=== PATIENT | male | born 1990 | race Caucasian/White ===

== ENCOUNTER 2018-06-27 09:02 | Emergency (ER) | payer OTHER ==
[~2018-06-27] VITALS: Ht 182.9 cm; Wt 210.0 kg
[~2018-06-27 09:02] MED LIST: ACETAMINOPHEN-1 EAC1 PO; AFRIN15 ML NS; ALBUTEROL2.5 MG/31 INH; AMLODIPINE; AUGMENTIN 875875 MG PO; BENADRYL25 MG PO; BIAXIN500 MG PO; BUSPAR; BUSPIRONE HCL10 MG PO; BUTALB-APAP-CA1 EACH PO; CELEXA20 MG PO; CEPHALEXIN 500500 M3 PO; CIPRO HC OTIC S10 ML OTIC; CIPROFLOXIN HC2.5 M1 OTIC; DOXYCYCLINE 10100 MG PO; FLAGYL500 MG PO; HYDROCODON-ACE1 EAC7 PO; HYDROCODONE-AP1 EAC6 PO; HYDROCODONE-APA1 TA1 PO; IBUPROFEN 800800 M1 PO; LEXAPRO; LEXAPRO 10 MG T10 M1; LEXAPRO20 MG PO; LISINOPRIL; LORATIDINE 10 M10 M1 PO; MEDROLDOSEPACK PO; NAPROSYN500 MG PO; NORCO 5-325 TA1 EAC1 PO; NORFLEX100 MG PO; NORVASC 5 MG TAB5 MG PO; OMEPRAZOLE; OMEPRAZOLE40 MG PO; ONDANSETRON HCL4 M2 PO; ONE A DAY; PHENERGAN 25 MG25 M1 PO; PHENERGAN 25 MG25 MG PO; PROAIR HFA8.5 GM INH; PROMETHAZINE D480 ML PO; ROBAXIN500 MG PO; TRAMADOL 50 MG50 MG PO; TRAZODONE; TRAZODONE HCL100 MG PO; VENTOLIN HFA 1818 GM INH; ZESTORETIC 20-1 EAC2 PO; ZOFRAN ODT4 MG PO; ZYRTEC; ZYRTEC10 MG PO
[2018-06-27] MEDS ORDERED: MOBIC15 MG PO (09:12)
[2018-06-27] MEDS ORDERED: GABAPENTIN 100100 MG PO (09:12)
[2018-06-27] MEDS ORDERED: TIZANIDINE HCL2 M1 PO (09:12)
[2018-06-27] MEDS ORDERED: ONE A DAY PREN1 EACH PO (09:13)
[2018-06-27] MEDS ORDERED: TRAMADOL 50 MG50 MG PO (09:13)
[2018-06-27] MEDS ORDERED: TRAZODONE HCL50 MG PO (09:13)
[2018-06-27] MEDS ORDERED: HYDROCODON-ACE1 EAC7 PO (10:20)
[2018-06-27 10:29] VITALS: BP 131/83
== END 2018-06-27 10:30 | disposition home or self-care (01) ==
LOC: M.ERS 09:02
DX: S70.02XA Contusion of left hip, initial encounter (principal); F41.9 Anxiety disorder, unspecified; K58.9 Irritable bowel syndrome, unspecified; I10 Essential (primary) hypertension; J45.909 Unspecified asthma, uncomplicated; F31.9 Bipolar disorder, unspecified; E66.01 Morbid (severe) obesity due to excess calories; F17.210 Nicotine dependence, cigarettes, uncomplicated; Z90.49 Acquired absence of other specified parts of digestive tract; Z68.44 Body mass index [BMI] 60.0-69.9, adult; Z88.8 Allergy status to other drugs, medicaments and biological substances; Z91.018 Allergy to other foods; W01.0XXA Fall on same level from slipping, tripping and stumbling without subsequent striking against object, initial encounter; Y93.89 Activity, other specified; Y92.89 Other specified places as the place of occurrence of the external cause; Y99.8 Other external cause status

== ENCOUNTER 2018-07-15 08:28 | Inpatient (IN) | payer OTHER ==
[~2018-07-15] VITALS: Ht 185.4 cm; Wt 210.0 kg
--- NOTE | ~2018-07-15 | OP ---
[address] [address] OPERATIVE REPORT Name: QUIQUE VILLALBA Room: [address] IN M.R.#: [id number] Admission: 07/15/18 Attend Phys: Quique Kang MD Discharge: Date of : 89 Report #: [id number] THIS REPORT FOR: //name// CC: Quique Dean DATE OF SERVICE: 07/16/2018 PREOPERATIVE DIAGNOSIS: Right medial thigh abscess. POSTOPERATIVE DIAGNOSIS: Right medial thigh abscess. PROCEDURE PERFORMED: Incision and drainage of right thigh abscess. PRIMARY SURGEON: Tristin Miller DO COSURGEON : Omar Jacob DO, PGY-3 COAT AGENT: YAMILETH Sandhu. INDICATIONS: The patient is a 27-year-old male that presented to the Emergency Room and was admitted to the floor with right medial thigh cellulitis and abscess. General surgery was consulted after purulent drainage was noted from his right medial thigh. On inspection, there was purulent drainage; however, a large likely abscess cavity was present that seemed too large to adequately drain to the small aperture. He was informed of the risks and benefits of incision and drainage and decided to proceed with surgery. DESCRIPTION OF PROCEDURE: After informed consent was obtained, the patient was brought to the operating room and placed in the supine position. General anesthesia was administered with an LMA. He was then repositioned into lithotomy. He was prepped and draped in the usual sterile fashion with Betadine. A surgical pause was held to confirm proper patient and procedure. We begun by placing a Thelma into the draining opening to explore the limits of the wound. There was an underlying abscess cavity with purulent fluid that began successfully draining from this hole. An 18-gauge was then inserted into the more anterior indurated portion of the wound and purulent drainage was confirmed there as well. An 11 blade was used to connect this puncture site to the previous draining site. Blunt dissection was used to open the entire abscess cavity to hold its limits. The more posterior aspect of the incision was also extended to allow complete unroofing of the abscess cavity. The wound was then thoroughly irrigated and packed irrigation included hydrogen peroxide as well as normal saline. The wound was packed using a 2-inch Dayan roll and it was dressed with 4 x 4s, ABDs and tape. The patient was repositioned supine. He was emerged from anesthesia and transferred to the PACU and subsequently to the [place] [address] OPERATIVE REPORT Name: QUIQUE VILLALBA Room: [address]#: [id number] Admission: 07/15/18 Attend Phys: Quique Kang MD Discharge: Date of : 89 Report #: [id number] ESTIMATED BLOOD LOSS: 10 mL. SPECIMEN: Cultures of the wound. COMPLICATIONS: No complications. By: [id number] jaiden Toney
[~2018-07-15 08:28] MED LIST changes: +GABAPENTIN 100100 MG PO; +MOBIC15 MG PO; +ONE A DAY PREN1 EACH PO; +TIZANIDINE HCL2 M1 PO; +TRAZODONE HCL50 MG PO
[2018-07-15 08:39] VITALS: BP 152/71
[2018-07-15 09:12] LABS: ABSOLUTE BASOPHILS 0.1 thou/uL (0.0-0.2); ABSOLUTE EOSINOPHILS 0.2 thou/uL (0.0-0.7); ABSOLUTE LYMPHOCYTES 1.2 thou/uL (0.8-5.3); ABSOLUTE MONOCYTES 0.8 thou/uL (0.0-1.2); BASOPHILS 0.6 %; EOSINOPHILS 2.2 %; HEMATOCRIT 41.6 % (42.0-52.0); HEMOGLOBIN 14.2 gm/dL (14.0-18.0); LYMPHOCYTES 11.9 %; MCH 28.9 pg (26.0-34.0); MCHC 34.2 g/dL (28.0-37.0); MCV 84.5 fL (80.0-100.0); MONOCYTES 8.1 %; MPV 7.8 fl. (7.2-11.1); NUCLEATED RBCS 0 /100WBC; PLATELET COUNT* 260 thou/uL (150-400); POLYS 77.2 %; RBC 4.92 mil/uL (4.50-6.00); RDW-CV 13.3 % (10.5-14.5); WBC 10.4 thou/uL (4.0-11.0)
[2018-07-15 09:21] LABS: CALCIUM 8.7 mg/dL (8.5-10.1); CREATININE 0.9 mg/dL (0.6-1.3); POTASSIUM 3.7 mmol/L (3.5-5.1)
[2018-07-15 09:26] LABS: ALBUMIN 2.9 g/dL (3.4-5.0); TOTAL BILIRUBIN 0.4 mg/dL (<0.1-1.0); TOTAL PROTEIN 6.8 g/dL (6.4-8.2)
[2018-07-15 10:51] VITALS: BP 153/67
[2018-07-15 12:30] VITALS: BP 131/80
[2018-07-15 14:46] LABS: URINE BILIRUBIN NEGATIVE (Negative); URINE BLOOD NEGATIVE (Negative); URINE CLARITY CLEAR; URINE COLOR YELLOW; URINE GLUCOSE-RANDOM NEGATIVE (Negative); URINE KETONES NEGATIVE (Negative); URINE LEUKOCYTES-REFLEX NEGATIVE (Negative); URINE NITRITE-REFLEX NEGATIVE (Negative); URINE PROTEIN NEGATIVE (Negative); URINE SPECIFIC GRAVITY >= 1.030 (1.005-1.030); URINE UROBILINOGEN 0.2 E.U./dl (0.2-1.0)
[2018-07-15 16:00] VITALS: BP 136/66
[2018-07-15 23:53] VITALS: BP 132/67
[2018-07-16 04:40] LABS: HEMATOCRIT 38.5 % (42.0-52.0); MCH 28.7 pg (26.0-34.0); MCHC 33.9 g/dL (28.0-37.0); MCV 84.9 fL (80.0-100.0); RBC 4.54 mil/uL (4.50-6.00); RDW-CV 13.3 % (10.5-14.5); WBC 11.4 thou/uL (4.0-11.0)
[2018-07-16 04:41] LABS: CALCIUM 8.2 mg/dL (8.5-10.1); CREATININE 0.8 mg/dL (0.6-1.3); MAGNESIUM 1.8 mg/dL (1.8-2.4); POTASSIUM 4.2 mmol/L (3.5-5.1)
[2018-07-16 08:55] VITALS: BP 102/78
[2018-07-16 16:23] VITALS: BP 154/83
[2018-07-16 19:11] LABS: GLYCOHEMOGLOBIN (HGB A1C) 6.1 % (4.8-5.6)
[2018-07-16 20:00] VITALS: BP 159/79
[2018-07-17 04:14] LABS: HEMATOCRIT 41.5 % (42.0-52.0); HEMOGLOBIN 14.1 gm/dL (14.0-18.0); MCH 28.8 pg (26.0-34.0); MCHC 34.1 g/dL (28.0-37.0); MCV 84.4 fL (80.0-100.0); MPV 8.1 fl. (7.2-11.1); RBC 4.91 mil/uL (4.50-6.00); RDW-CV 12.9 % (10.5-14.5); WBC 11.8 thou/uL (4.0-11.0)
[2018-07-17 04:44] LABS: CALCIUM 8.8 mg/dL (8.5-10.1); CREATININE 0.8 mg/dL (0.6-1.3); MAGNESIUM 2.1 mg/dL (1.8-2.4)
[2018-07-17 04:50] LABS: POTASSIUM 5.5 mmol/L (3.5-5.1)
[2018-07-17 08:10] VITALS: BP 127/71
[2018-07-17 16:34] VITALS: BP 141/95
[2018-07-17 20:00] VITALS: BP 120/50
[2018-07-18 07:45] VITALS: BP 146/62
[2018-07-18 10:03] VITALS: BP 146/62
[2018-07-18] MEDS ORDERED: AUGMENTIN 875-1 EACH PO (10:42)
[2018-07-18] MEDS ORDERED: IBUPROFEN 800800 M1 PO (10:43)
[2018-07-18] MEDS ORDERED: NORCO 5-325 TA1 EACH PO (11:02)
== END 2018-07-18 11:25 | disposition home or self-care (01) | DRG 872 ==
LOC: M.ERS 08:28 → M.3W 09:38 → M.TBA-ER 09:38 → M.3W 10:55
PROVIDERS: Emergency Medicine Emergency Medical Services; Surgery; ADMIT Internal Medicine
PROC: 0Y9C0ZZ Drainage of Right Upper Leg, Open Approach (ICD-10-PCS; principal; 2018-07-16)
DX: A41.9 Sepsis, unspecified organism (principal); L02.415 Cutaneous abscess of right lower limb; L03.115 Cellulitis of right lower limb; Z68.44 Body mass index [BMI] 60.0-69.9, adult; F41.9 Anxiety disorder, unspecified; G47.00 Insomnia, unspecified; I10 Essential (primary) hypertension; J45.909 Unspecified asthma, uncomplicated; F31.9 Bipolar disorder, unspecified; E66.01 Morbid (severe) obesity due to excess calories; E11.65 Type 2 diabetes mellitus with hyperglycemia; G89.29 Other chronic pain; F17.220 Nicotine dependence, chewing tobacco, uncomplicated; G47.33 Obstructive sleep apnea (adult) (pediatric); F41.1 Generalized anxiety disorder; K58.9 Irritable bowel syndrome, unspecified; E87.5 Hyperkalemia; R73.03 Prediabetes; Z88.8 Allergy status to other drugs, medicaments and biological substances; Z90.49 Acquired absence of other specified parts of digestive tract; Z79.899 Other long term (current) drug therapy

== ENCOUNTER 2020-12-15 17:48 | Emergency (ER) | payer OTHER ==
[~2020-12-15] VITALS: Ht 182.9 cm; Wt 213.2 kg
[~2020-12-15 17:48] MED LIST changes: +AUGMENTIN 875-1 EACH PO; +NORCO 5-325 TA1 EACH PO
[2020-12-15] MEDS ORDERED: PROBIOTIC1 EAC7 PO (18:05)
[2020-12-15] MEDS ORDERED: SINGULAIR4 M1 PO (18:05)
[2020-12-15] MEDS ORDERED: TOPAMAX100 MG PO (18:06)
[2020-12-15] MEDS ORDERED: DRIZALMA SPRINK20 MG PO (18:06)
[2020-12-15] MEDS ORDERED: PROAIR HFA8.5 GM INH (18:33)
[2020-12-15] MEDS ORDERED: XANAX 0.5 MG0.5 MG PO ×2 (18:33→18:41)
[2020-12-15] MEDS ORDERED: NIGHTTIME SLEEP25 M1 PO (18:33)
[2020-12-15 18:50] VITALS: BP 140/89
--- NOTE | 2020-12-18 13:44 | EKG ---
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
== END 2020-12-15 18:52 | disposition home or self-care (01) ==
LOC: M.ERS 17:48
DX: R07.89 Other chest pain (principal); R06.02 Shortness of breath; R94.31 Abnormal electrocardiogram [ECG] [EKG]; F41.9 Anxiety disorder, unspecified; I10 Essential (primary) hypertension; J45.909 Unspecified asthma, uncomplicated; F31.9 Bipolar disorder, unspecified; E66.01 Morbid (severe) obesity due to excess calories; F17.210 Nicotine dependence, cigarettes, uncomplicated; Z96.22 Myringotomy tube(s) status; Z90.49 Acquired absence of other specified parts of digestive tract; Z68.44 Body mass index [BMI] 60.0-69.9, adult; Z79.899 Other long term (current) drug therapy; Z88.8 Allergy status to other drugs, medicaments and biological substances; Z91.018 Allergy to other foods; Z91.048 Other nonmedicinal substance allergy status; Z76.0 Encounter for issue of repeat prescription

== ENCOUNTER 2021-08-13 20:34 | Emergency (ER) | payer OTHER ==
[~2021-08-13] VITALS: Ht 185.4 cm; Wt 190.5 kg
[~2021-08-13 20:34] MED LIST changes: +DRIZALMA SPRINK20 MG PO; +NIGHTTIME SLEEP25 M1 PO; +PROBIOTIC1 EAC7 PO; +SINGULAIR4 M1 PO; +TOPAMAX100 MG PO; +XANAX 0.5 MG0.5 MG PO
[2021-08-13] MEDS ORDERED: IMITREX5 MG NARES (20:52)
[2021-08-13] MEDS ORDERED: PROTONIX40 M2 PO ×2 (20:53→20:54)
[2021-08-13] MEDS ORDERED: LISINOPRIL20 MG PO (20:53)
[2021-08-13 22:42] LABS: URINE BILIRUBIN NEGATIVE (Negative); URINE BLOOD NEGATIVE (Negative); URINE CLARITY CLEAR; URINE COLOR YELLOW; URINE GLUCOSE-RANDOM NEGATIVE (Negative); URINE KETONES NEGATIVE (Negative); URINE LEUKOCYTES-REFLEX NEGATIVE (Negative); URINE NITRITE-REFLEX NEGATIVE (Negative); URINE PROTEIN NEGATIVE (Negative); URINE UROBILINOGEN 0.2 E.U./dl (0.2-1.0)
[2021-08-13 22:57] LABS: ABSOLUTE BASOPHILS 0.1 thou/uL (0.0-0.2); ABSOLUTE EOSINOPHILS 0.2 thou/uL (0.0-0.7); ABSOLUTE LYMPHOCYTES 0.9 thou/uL (0.8-5.3); ABSOLUTE MONOCYTES 0.9 thou/uL (0.0-1.2); ABSOLUTE NEUTROPHILS 8.5 thou/uL (1.6-8.1); BASOPHILS 0.6 %; HEMATOCRIT 46.3 % (42.0-52.0); HEMOGLOBIN 15.7 gm/dL (14.0-18.0); LYMPHOCYTES 8.5 %; MCH 27.9 pg (26.0-34.0); MCHC 33.9 g/dL (28.0-37.0); MCV 82.4 fL (80.0-100.0); MONOCYTES 8.3 %; MPV 7.5 fl. (7.2-11.1); NUCLEATED RBCS 0 /100WBC; PLATELET COUNT* 252 thou/uL (150-400); POLYS 80.6 %; RBC 5.63 mil/uL (4.50-6.00); RDW-CV 13.3 % (10.5-14.5); WBC 10.5 thou/uL (4.0-11.0)
[2021-08-13 23:06] LABS: CALCIUM 8.9 mg/dL (8.5-10.1); CREATININE 1.1 mg/dL (0.6-1.3); POTASSIUM 3.7 mmol/L (3.5-5.1)
[2021-08-13 23:11] LABS: ALBUMIN 3.9 g/dL (3.4-5.0); TOTAL BILIRUBIN 0.6 mg/dL (<0.1-1.0); TOTAL PROTEIN 7.9 g/dL (6.4-8.2)
[2021-08-14] MEDS ORDERED: HYDROCODON-ACE1 EAC7 PO (00:26)
[2021-08-14] MEDS ORDERED: TORADOL 10 MG T10 MG PO (00:26)
[2021-08-14 01:01] VITALS: BP 182/94
== END 2021-08-14 01:01 | disposition home or self-care (01) ==
LOC: M.ERS 20:34
PROVIDERS: Nurse Practitioner Family; Physician Assistant
DX: N50.812 Left testicular pain (principal); F32.9 Major depressive disorder, single episode, unspecified; F41.9 Anxiety disorder, unspecified; I10 Essential (primary) hypertension; J45.909 Unspecified asthma, uncomplicated; E66.01 Morbid (severe) obesity due to excess calories; F17.210 Nicotine dependence, cigarettes, uncomplicated; Z79.899 Other long term (current) drug therapy; Z90.49 Acquired absence of other specified parts of digestive tract; Z88.8 Allergy status to other drugs, medicaments and biological substances